=== PATIENT | female | born 1970 | race Caucasian/White ===

== ENCOUNTER 2017-09-07 19:01 | Emergency (ER) | payer MEDICAID, OTHER ==
[~2017-09-07] VITALS: Ht 157.5 cm; Wt 91.6 kg
[2017-09-07 19:06] VITALS: BP_SYST 154
[2017-09-07] MEDS ORDERED: NACL 0.9% 1,000 ML IV ONE (19:42)
[2017-09-07] MEDS ORDERED: PROCHLORPERAZINE EDISYLATE 10 MG/2 ML VIAL IVP ONE (19:45)
[2017-09-07] MEDS ORDERED: DIPHENHYDRAMINE INJ 50 MG/ML VIAL IVP ONE (19:45)
[2017-09-07 20:14] LABS: BASOPHILS % (AUTO) 0.4 % (0.0-2.0); EOSINOPHILS # (AUTO) 0.1 K/uL (0.0-0.4); EOSINOPHILS % (AUTO) 1.3 % (0.0-4.0); HEMATOCRIT 37.4 % (36-48); HEMOGLOBIN 12.7 g/dL (12.0-16.0); LYMPHOCYTES # (AUTO) 3.7 K/uL (1.0-5.5); LYMPHOCYTES % (AUTO) 35.2 % (20.5-51.5); MEAN CORPUSCULAR HEMOGLOBIN 31 pg (27-31); MEAN CORPUSCULAR HGB CONC 34 % (32-36); MEAN CORPUSCULAR VOLUME 91 fL (79.0-98.0); MONOCYTES # (AUTO) 0.7 K/uL (0.0-1.0); MONOCYTES % (AUTO) 6.6 % (1.7-9.3); NEUTROPHILS # (AUTO) 6.1 K/uL (1.8-7.7); NEUTROPHILS % (AUTO) 56.5 % (40.0-70.0); PLATELET COUNT (AUTO) 308 K/uL (130-430); RED CELL DISTRIBUTION WIDTH 12.4 % (9.0-15.0); WHITE BLOOD COUNT (AUTO) 10.6 K/uL (4.8-10.8)
[2017-09-07 20:16] LABS: BILIRUBIN,URINE NEGATIVE (NEGATIVE); BLOOD, URINE 1+ (NEGATIVE); CLARITY/URINE CLEAR (CLEAR); COLOR,URINE YELLOW (YELLOW); GLUCOSE,URINE NEGATIVE (NEGATIVE); KETONES,URINE 1+ (NEGATIVE); LEUKOCYTE ESTERASE ,URINE NEGATIVE (NEGATIVE); NITRITE, URINE NEGATIVE (NEGATIVE); PROTEIN URINE NEGATIVE (NEGATIVE); UROBILINOGEN,URINE 0.2 (0.2-1.0)
[2017-09-07 20:18] LABS: CALCIUM 9.4 mg/dL (8.4-11.0); CREATININE 0.76 mg/dL (0.55-1.30); POTASSIUM 3.8 mmol/L (3.5-5.1)
[2017-09-07 20:23] LABS: ALBUMIN 3.5 g/dL (3.4-4.8); TOTAL BILIRUBIN 0.3 mg/dL (0.0-1.0)
[2017-09-07 20:24] LABS: BACTERIA,URINE FEW /HPF (None Seen); MUCUS,URINE None Seen /LPF (None Seen); WBC,URINE 0-3 /HPF (0-3)
[2017-09-07 21:50] VITALS: BP_SYST 148
== END 2017-09-07 21:50 | disposition home or self-care (01) ==
LOC: SED 19:01
DX: B34.9 Viral infection, unspecified (principal); R53.1 Weakness; R51 Headache
CPT/HCPCS: 36415; 80053; 81000; 85025; 96361; 96374; 96375; 99284; J0780; J1200; J7030

== ENCOUNTER 2022-09-12 20:37 | Emergency (ER) | payer MEDICAID ==
[~2022-09-12] VITALS: Ht 154.9 cm; Wt 89.4 kg
[2022-09-12 20:42] VITALS: BP_SYST 134
[2022-09-12 21:20] LABS: BASOPHILS % (AUTO) 0.4 % (0.0-2.0); EOSINOPHILS # (AUTO) 0.1 K/uL (0.0-0.4); EOSINOPHILS % (AUTO) 1.3 % (0.0-4.0); HEMATOCRIT 37.9 % (36-48); HEMOGLOBIN 12.9 g/dL (12.0-16.0); LYMPHOCYTES % (AUTO) 26.8 % (20.5-51.5); MEAN CORPUSCULAR HEMOGLOBIN 31 pg (27-31); MEAN CORPUSCULAR HGB CONC 34 % (32-36); MEAN CORPUSCULAR VOLUME 92 fL (79.0-98.0); MONOCYTES # (AUTO) 0.7 K/uL (0.0-1.0); NEUTROPHILS # (AUTO) 7.3 K/uL (1.8-7.7); NEUTROPHILS % (AUTO) 65.5 % (40.0-70.0); PLATELET COUNT (AUTO) 289 K/uL (130-430); RED BLOOD CELL COUNT(AUTO) 4.12 MIL/uL (4.2-6.2); RED CELL DISTRIBUTION WIDTH 12.9 % (9.0-15.0); WHITE BLOOD COUNT (AUTO) 11.1 K/uL (4.8-10.8)
[2022-09-12 21:30] LABS: CALCIUM 8.1 mg/dL (8.4-11.0); CREATININE 0.98 mg/dL (0.55-1.30)
[2022-09-12 21:35] LABS: ALBUMIN 3.6 g/dL (3.4-4.8); TOTAL BILIRUBIN 0.2 mg/dL (0.0-1.0)
[2022-09-12 22:02] LABS: BILIRUBIN,URINE NEGATIVE (NEGATIVE); BLOOD, URINE 1+ (NEGATIVE); CLARITY/URINE CLEAR (CLEAR); COLOR,URINE YELLOW (YELLOW); GLUCOSE,URINE NEGATIVE (NEGATIVE); KETONES,URINE NEGATIVE (NEGATIVE); LEUKOCYTE ESTERASE ,URINE NEGATIVE (NEGATIVE); NITRITE, URINE NEGATIVE (NEGATIVE); PROTEIN URINE NEGATIVE (NEGATIVE); UROBILINOGEN,URINE 0.2 (0.2-1.0)
[2022-09-12 22:10] LABS: BACTERIA,URINE FEW /HPF (None Seen); MUCUS,URINE None Seen /LPF (None Seen); RBC,URINE 0-3 /HPF (0-3); WBC,URINE 0-3 /HPF (0-3)
[2022-09-12] MEDS ORDERED: MAG HYDROX/AL HYDROX/SIMETH 30 ML, DICYCLOMINE HCL 20 MG, LIDOCAINE VISCOUS 2% 15ML (PO... PO ONE ×3 (22:45)
[2022-09-12] MEDS ORDERED: ACETAMINOPHEN 500 MG TABLET PO ONE (22:45)
[2022-09-13] MEDS ORDERED: MAG360OR3 PO (00:20)
[2022-09-13] MEDS ORDERED: FAMO20TA8 PO (00:20)
[2022-09-13 01:01] VITALS: BP_SYST 136
== END 2022-09-13 01:07 | disposition home or self-care (01) ==
LOC: SED 20:37
DX: K29.70 Gastritis, unspecified, without bleeding (principal); R10.11 Right upper quadrant pain; R10.13 Epigastric pain; Z88.5 Allergy status to narcotic agent; Z79.899 Other long term (current) drug therapy
CPT/HCPCS: 99284; 74176; 80053; 81000; 83690; 85025; 36415; 76376; J2001

== ENCOUNTER 2022-12-30 14:12 | Emergency (ER) | payer MEDICAID ==
[~2022-12-30] VITALS: Ht 162.6 cm; Wt 90.7 kg
[~2022-12-30 14:12] MED LIST: FAMO20TA8 PO; MAG360OR3 PO
[2022-12-30 14:16] VITALS: BP_SYST 124; PULSE 98; RESP 20; TEMP 98; O2SAT 98
[2022-12-30 15:24] VITALS: BP_SYST 124; PULSE 98; RESP 20; TEMP 98; O2SAT 98
== END 2022-12-30 15:35 | disposition home or self-care (01) ==
LOC: SED 14:12
DX: S16.1XXA Strain of muscle, fascia and tendon at neck level, initial encounter (principal); S39.012A Strain of muscle, fascia and tendon of lower back, initial encounter; I10 Essential (primary) hypertension; Z88.5 Allergy status to narcotic agent; Z79.899 Other long term (current) drug therapy; V49.50XA Passenger injured in collision with unspecified motor vehicles in traffic accident, initial encounter; Y93.89 Activity, other specified; Y92.89 Other specified places as the place of occurrence of the external cause; Y99.8 Other external cause status
CPT/HCPCS: 99282

== ENCOUNTER 2023-09-06 13:14 | Emergency (ER) | payer MEDICAID, OTHER ==
[~2023-09-06] VITALS: Ht 162.6 cm; Wt 90.3 kg
[2023-09-06 13:26] VITALS: BP_SYST 195; PULSE 86; RESP 18; TEMP 98.3; O2SAT 98
[2023-09-06] MEDS: cloNIDine HCL 0.1 MG TABLET PO ONE (13:46)
[2023-09-06] MEDS ORDERED: LISI10TA29 PO (16:07)
[2023-09-06 16:21] VITALS: BP_SYST 149; PULSE 83; RESP 18; TEMP 97.8; O2SAT 97
== END 2023-09-06 16:22 | disposition home or self-care (01) ==
LOC: SED 13:14
DX: M79.661 Pain in right lower leg (principal); I10 Essential (primary) hypertension; Z76.0 Encounter for issue of repeat prescription; Z86.718 Personal history of other venous thrombosis and embolism; Z79.899 Other long term (current) drug therapy; Z88.5 Allergy status to narcotic agent
CPT/HCPCS: 93971; 99284